=== PATIENT | female | born 2005 | race Caucasian/White ===

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

== ENCOUNTER → 2023-11-22 | Outpatient (CLI) | payer BC ==
[2023-11-22 10:48] LABS: BASO # 0.1 10^3/uL (0.0-0.2); BASO % 0.8 % (0.0-1.0); EOS # 0.3 10^3/uL (0.0-0.5); EOS % 2.4 % (0.0-3.0); HEMATOCRIT 44.4 % (36.0-47.0); LYMPH # 2.8 10^3/uL (1.5-5.0); MEAN CORPUSCULAR HEMOGLOBIN 28.1 pg (27.0-33.0); MEAN CORPUSCULAR HGB CONC 33.8 g/dl (32.0-36.5); MEAN CORPUSCULAR VOLUME 83.1 fl (80.0-96.0); MONO # 0.8 10^3/uL (0.0-0.8); MONO % 6.4 % (2.0-8.0); NEUTROPHILS % 67.1 % (36.0-66.0); PLATELET COUNT, AUTOMATED 296 10^3/uL (150-450); RED BLOOD COUNT 5.34 10^6/uL (4.00-5.40)
[2023-11-22 11:03] LABS: ALBUMIN 3.7 G/DL (3.2-5.2); ALKALINE PHOSPHATASE 77 U/L (46-116); ALT/SGPT 34 U/L (7.0-40); AST/SGOT 16 U/L (<34); BILIRUBIN,TOTAL 0.8 MG/DL (0.3-1.2); BLOOD UREA NITROGEN 12 MG/DL (9-23); CALCIUM LEVEL 9.3 MG/DL (8.5-10.1); CARBON DIOXIDE LEVEL 25 MMOL/L (20-31); CHLORIDE LEVEL 107 MMOL/L (98-107); CHOLESTEROL LEVEL 182 MG/DL (<200); CHOLESTEROL RISK RATIO 5.68 (<5); CREATININE FOR GFR 0.63 MG/DL (0.55-1.30); GLUCOSE, FASTING 94 MG/DL (60-100); LDL CHOLESTEROL 130.4 MG/DL (<100); POTASSIUM SERUM 4.2 MMOL/L (3.5-5.1); SODIUM LEVEL 139 MMOL/L (136-145); TOTAL PROTEIN 7.2 G/DL (5.7-8.2); TRIGLYCERIDES LEVEL 98 MG/DL (<150)
[2023-11-22 11:04] LABS: FOLLICLE STIMULATING HORMONE 4.3 mIU/ML; LUTEINIZING HORMONE 4.5 mIU/ML
[2023-11-22 11:05] LABS: FREE T4 1.14 NG/DL (0.83-1.43); THYROID STIMULATING HORMONE 3.387 uIU/ML (0.48-4.17)
[2023-11-22 11:10] LABS: PROLACTIN 7.92 NG/ML
== END ==
LOC: M LAB 10:01
PROVIDERS: ATTEND Family Medicine
DX: N91.2 Amenorrhea, unspecified (principal); E66.01 Morbid (severe) obesity due to excess calories

== ENCOUNTER → 2024-04-08 | Outpatient (REF) | payer BC | LOC: M SFHCLERA 11:46 | PROVIDERS: ATTEND Family Medicine | DX: R50.9 Fever, unspecified (principal) ==

== ENCOUNTER 2024-04-30 14:02 | Inpatient (IN) | payer BC ==
[~2024-04-30] VITALS: Ht 170.2 cm; Wt 177.9 kg
[2024-04-30] MEDS ORDERED: METF-838 PO (14:13)
[2024-04-30] MEDS ORDERED: SERTRALINE (14:13)
[2024-04-30] MEDS ORDERED: NORG1TAB33 PO (14:13)
[2024-04-30 14:47] LABS: HEMATOCRIT 41.4 % (36.0-47.0); HEMOGLOBIN 14.2 g/dl (12.0-15.5); MEAN CORPUSCULAR HGB CONC 34.3 g/dl (32.0-36.5); MEAN CORPUSCULAR VOLUME 84.5 fl (80.0-96.0); PLATELET COUNT, AUTOMATED 327 10^3/uL (150-450); WHITE BLOOD COUNT 13.4 10^3/uL (4.0-10.0)
[2024-04-30 15:18] LABS: AMPHETAMINES LEVEL URINE NEGATIVE (NEGATIVE); BARBITURATES URINE NEGATIVE (NEGATIVE); BENZODIAZEPINES URINE NEGATIVE (NEGATIVE); COCAINE METABOLITE URINE NEGATIVE (NEGATIVE); METHADONE URINE NEGATIVE (NEGATIVE); OPIATES URINE NEGATIVE (NEGATIVE); PHENCYCLIDINE URINE NEGATIVE (NEGATIVE)
[2024-04-30 15:22] LABS: CANNABINOIDS URINE POSITIVE (NEGATIVE)
[2024-04-30 15:34] LABS: ETHYL ALCOHOL (ETHANOL) < 0.003 % (0.000-0.010)
[2024-04-30 15:35] LABS: SALICYLATE LEVEL < 3.0 MG/DL (<30)
[2024-04-30 15:36] LABS: ALBUMIN 3.7 G/DL (3.2-5.2); ALKALINE PHOSPHATASE 72 U/L (35-104); ALT/SGPT 47 U/L (7.0-40); AST/SGOT 30 U/L (<34); BILIRUBIN,DIRECT 0.2 MG/DL (<0.4); BILIRUBIN,TOTAL 0.6 MG/DL (0.3-1.2); BLOOD UREA NITROGEN 12 MG/DL (9-23); CALCIUM LEVEL 9.7 MG/DL (8.5-10.1); CARBON DIOXIDE LEVEL 23 MMOL/L (20-31); CHLORIDE LEVEL 108 MMOL/L (98-107); CREATININE FOR GFR 0.63 MG/DL (0.55-1.30); GLOMERULAR FILTRATION RATE > 60.0 (>60); GLUCOSE, FASTING 85 MG/DL (60-100); SODIUM LEVEL 140 MMOL/L (136-145); TOTAL PROTEIN 7.8 G/DL (5.7-8.2)
[2024-04-30 15:38] LABS: THYROID STIMULATING HORMONE 4.922 uIU/ML (0.55-4.78)
[2024-04-30 15:54] LABS: HCG, SERUM QUALITATIVE NEGATIVE (NEGATIVE)
[2024-04-30] MEDS ORDERED: diphenhydrAMINE 25MG CAP PO PRN (17:30)
[2024-04-30] MEDS ORDERED: MOM 30ML SUSPENSION UDC PO PRN (17:30)
[2024-04-30] MEDS ORDERED: MAALOX 30 ML SUSP *UDC PO PRN (17:30)
[2024-04-30] MEDS ORDERED: ZOLO100T PO (17:30)
[2024-04-30] MEDS ORDERED: IBUPROFEN 400MG TAB PO PRN (17:30)
[2024-04-30] MEDS ORDERED: traZODone 50 MG TAB PO PRN (17:30)
[2024-04-30] MEDS ORDERED: ACETAMINOPHEN 325 MG TAB PO PRN (17:30)
[2024-04-30] MEDS ORDERED: HOME MED LIST COMPLETE! XX SCH (17:35)
[2024-04-30 20:45] VITALS: BP 137/85; TEMP 97.9; O2SAT 96
[2024-04-30] MEDS: metFORMIN XR 500MG TAB *GLUCOPHAGE XR PO ONE (21:03)
[2024-05-01 06:19] VITALS: BP 125/73; TEMP 96.9; O2SAT 96
[2024-05-01] MEDS: SERTRALINE HCL 50 MG TAB PO SCH (09:14)
[2024-05-01] MEDS: busPIRone 5 MG TAB PO SCH (09:14)
[2024-05-01] MEDS: ONDANSETRON 4MG TAB PO PRN (13:07)
[2024-05-01] MEDS: FLUZONE VACCINE TRIVALENT PF(2024-25) 0.5ML SYRINGE IM.IMMUN ONE (15:00)
[2024-05-01 15:41] VITALS: BP 138/92; TEMP 98.1; O2SAT 98
[2024-05-01] MEDS: metFORMIN XR 500MG TAB *GLUCOPHAGE XR PO SCH (17:56)
[2024-05-02 06:05] VITALS: BP 144/98; TEMP 98.9; O2SAT 98
[2024-05-02] MEDS ORDERED: BUSP5TA PO (08:03)
[2024-05-02] MEDS ORDERED: SERT-141 PO (08:03)
== END 2024-05-02 11:05 | disposition home or self-care (01) | DRG 754 ==
LOC: M ED 14:02 → M ED INP 17:30 → M PSY 20:04
PROVIDERS: ADMIT Psychiatry & Neurology Psychiatry; ATTEND Psychiatry & Neurology Psychiatry
DX: F32.9 Major depressive disorder, single episode, unspecified (principal); F41.9 Anxiety disorder, unspecified; E28.2 Polycystic ovarian syndrome; F17.210 Nicotine dependence, cigarettes, uncomplicated; F17.290 Nicotine dependence, other tobacco product, uncomplicated; F12.90 Cannabis use, unspecified, uncomplicated; R45.851 Suicidal ideations; Z91.51 Personal history of suicidal behavior; Z83.3 Family history of diabetes mellitus; Z79.84 Long term (current) use of oral hypoglycemic drugs; Z79.899 Other long term (current) drug therapy

== ENCOUNTER → 2024-07-09 | Outpatient (CLI) | payer BC ==
[~2024-07-09] MED LIST: BUSP5TA PO; METF-838 PO; NORG1TAB33 PO; SERT-141 PO; SERTRALINE; ZOLO100T PO
== END ==
LOC: M SOG 07:59
PROVIDERS: ATTEND Physician Assistant
DX: M25.561 Pain in right knee (principal)

== ENCOUNTER 2024-07-28 10:18 | Outpatient (RCR) | payer BC | END 2024-08-22 | LOC: M PT 10:18 | PROVIDERS: ATTEND Orthopaedic Surgery | DX: S80.11XA Contusion of right lower leg, initial encounter (principal); X58.XXXA Exposure to other specified factors, initial encounter; Y92.9 Unspecified place or not applicable ==

== ENCOUNTER 2025-03-17 09:36 | Emergency (ER) | payer BC ==
[~2025-03-17] VITALS: Ht 170.2 cm; Wt 163.8 kg
[2025-03-17 09:37] VITALS: BP 140/91; TEMP 96.7; O2SAT 97
[2025-03-17] MEDS ORDERED: TIRZ10PE3 (09:41)
[2025-03-17] MEDS ORDERED: ESCITALOPRAM (09:41)
[2025-03-17] MEDS ORDERED: HYDR50TA70 (09:41)
[2025-03-17 10:34] LABS: BASO # 0.1 10^3/uL (0.0-0.2); BASO % 0.6 % (0.0-1.0); EOS # 0.2 10^3/uL (0.0-0.5); EOS % 2.0 % (0.0-3.0); LYMPH # 2.7 10^3/uL (1.5-5.0); LYMPH % 22.4 % (24.0-44.0); MONO # 0.8 10^3/uL (0.0-0.8); MONO % 6.4 % (2.0-8.0); NEUTROPHILS # 8.2 10^3/uL (1.5-8.5); NEUTROPHILS % 68.3 % (36.0-66.0); PLATELET COUNT, AUTOMATED 303 10^3/uL (150-450)
[2025-03-17] MEDS ORDERED: ACET-683 PO (10:53)
[2025-03-17 11:07] LABS: ALT/SGPT 43 U/L (7.0-40); AST/SGOT 40 U/L (<34); CALCIUM LEVEL 9.4 MG/DL (8.5-10.1); CARBON DIOXIDE LEVEL 23 MMOL/L (20-31); CHLORIDE LEVEL 108 MMOL/L (98-107); CREATININE FOR GFR 0.74 MG/DL (0.55-1.30); GLOMERULAR FILTRATION RATE > 90.0 (>60); POTASSIUM SERUM 4.3 MMOL/L (3.5-5.1); SODIUM LEVEL 141 MMOL/L (136-145)
[2025-03-17 11:08] LABS: HCG, SERUM QUALITATIVE NEGATIVE (NEGATIVE)
== END 2025-03-17 11:02 | disposition left against medical advice (07) ==
LOC: M ED 09:36
DX: Z53.21 Procedure and treatment not carried out due to patient leaving prior to being seen by health care provider (principal)

== ENCOUNTER → 2025-04-28 | Outpatient (RCR) ==
[~2025-04-28] MED LIST changes: +ACET-683 PO; +ESCITALOPRAM; +HYDR50TA70; +TIRZ10PE3
== END ==
LOC: M EMPSKH 04-05 11:52 → MERGE 04-05 11:52
PROVIDERS: ATTEND Family Medicine
DX: Z20.828 Contact with and (suspected) exposure to other viral communicable diseases (principal)